=== PATIENT | female | born 1995 | race Caucasian/White ===

== ENCOUNTER 2022-05-20 13:23 | Emergency (ER) | payer MEDICAID ==
[~2022-05-20] VITALS: Ht 165.1 cm; Wt 65.8 kg
--- NOTE | 2022-05-20 13:25 | NUR ---
PT BIBA ALS TO BED 12
--- NOTE | 2022-05-20 13:26 | NUR ---
27/F BIBA C/O HIVES ALL OVER BODY S/P EATING FOOD WITH PEANUT. PT HX PEANUT ALLERGY. PT STATES SELF-INJECTING EPIPEN UPON DEVELOPMENT OF REACTION. EMS STATES ADMINISTERING 50MG BENADRYL IM INJ [employer] ENGINEER. AAO4, AMBULATORY, TACHY ON MONITOR. PMH: DENIES
[2022-05-20 13:31] VITALS: BP 109/70
[2022-05-20] MEDS ORDERED: NACL 0.9% 1,000 ML IV ONE (13:35)
[2022-05-20] MEDS ORDERED: DEXAMETHASONE 10 MG/ML VIAL IVP ONE (13:35)
[2022-05-20] MEDS ORDERED: FAMOTIDINE 20 MG/2 ML VIAL IVP ONE (13:35)
[2022-05-20] MEDS ORDERED: DEXAMETHASONE 10 MG/ML VIAL ONE (13:38)
[2022-05-20] MEDS ORDERED: FAMOTIDINE 20 MG/2 ML VIAL ONE (13:38)
[2022-05-20] MEDS ORDERED: EPIN1KIT31 IM (14:16)
== END 2022-05-20 15:00 | disposition home or self-care (01) ==
LOC: MED 13:23
DX: R42 Dizziness and giddiness (principal); T78.2XXA Anaphylactic shock, unspecified, initial encounter
CPT/HCPCS: 96361; 96374; 96375; 99284; J1100; J3490; J7030